=== PATIENT | male | born 1980 | race American Indian/Alaskan Native ===

== ENCOUNTER 2018-02-13 10:10 | Emergency (ER) | payer BC ==
[2018-02-13 10:20] VITALS: BP 137/90
[2018-02-13] MEDS ORDERED: PROVENTIL IH ONE (10:53)
[2018-02-13] MEDS ORDERED: DELTASONE PO ONE (10:54)
[2018-02-13] MEDS ORDERED: IBUPROFEN PO ONE (10:56)
--- NOTE | 2018-02-13 10:58 | Emergency Department Report ---
Minor Respiratory - HPI Chief Complaint: Adult Asthma Stated Complaint: SOB Time Seen by Provider: 02/13/18 10:42 Duration: 3 Days Pain Location: Chest Severity: mild Minor Respiratory: Yes Able to Tolerate Fluids, Yes Cough, No Rhinorrhea, No Sore Throat, No Ear Pain, No Sick Contacts, No Hemoptysis, No Chest Pain, No Shortness of Breath, No Fever Other History: Patient is a 37-year-old -[place] male who comes in today complaining of shortness of breath and wheezing for 2 days. Patient has a past medical history of asthma and he is out of his inhalers and has been for some time. Patient denies any other major medical problems. And is on no daily medications.no fever. ED Review of Systems ROS: Stated complaint: SOB Other details as noted in HPI Comment: All other systems reviewed and negative Constitutional: see HPI. denies: chills Eyes: denies: eye pain ENT: as per HPI. denies: throat pain Respiratory: no symptoms reported, see HPI, cough, shortness of breath, wheezing Cardiovascular: denies: chest pain, palpitations Endocrine: denies: flushing Gastrointestinal: denies: abdominal pain Genitourinary: denies: urgency Musculoskeletal: denies: back pain Skin: denies: lesions Neurological: denies: weakness Psychiatric: denies: depression Hematological/Lymphatic: denies: easy bleeding ED Past Medical Hx - Past Medical History Previous Medical History?: Yes Hx Asthma: Yes - Surgical History Past Surgical History?: Yes Additional Surgical History: bilat femur surgery - Social History Smoking Status: Current Every Day Smoker - Medications Home Medications: Home Medications Medication Instructions Recorded Confirmed Last Taken Type ALBUTEROL Inhaler (OR & NICU) 2 puff IH QID PRN #1 inhalation 02/13/18 Unknown Rx [ProAir HFA Inhaler] Amoxicillin 500 mg PO BID #20 capsule 02/13/18 Unknown Rx Cetirizine HCl [ZyrTEC] 10 mg PO DAILY #20 capsule 02/13/18 Unknown Rx Fluticasone [Flonase] 1 spray NS QDAY #1 bottle 02/13/18 Unknown Rx predniSONE [Deltasone] 20 mg PO DAILY #5 tablet 02/13/18 Unknown Rx Minor Respiratory Exam - Exam General: Vital signs noted. No distress. Alert and acting appropriately. HEENT: Yes Moist Mucous Membranes, No Pharyngeal Erythema, No Pharyngeal Exudates, No Rhinorrhea, No Conjuctival Injection, No Frontal Tenderness, No Maxillary Tenderness Ear: Neither TM Bulge, Neither TM Erythema, Neither EAC Pain, Neither EAC Discharge Neck: Yes Supple, No Adenopathy Lungs: Yes Good Air Exchange, Yes Wheezes (b), Yes Cough, No Ronchi, No Stridor, No Labored Respirations, No Retractions, No Use of Accessory Muscles, No Other Abnormal Lung Sounds Heart: Yes Regular (hr 90 on exam), No Murmur Abdomen: Yes Normal Bowel Sounds, No Tenderness, No Peritoneal Signs Skin: No Rash, No Edema Neurologic: Alert and oriented, no deficits. Musculoskeletal: Unremarkable. ED Course Vital Signs 02/13/18 10:17 Temperature 98.8 F Pulse Rate 115 H Respiratory 22 Rate Blood Pressure 137/90 O2 Sat by Pulse 97 Oximetry ED Medical Decision Making - Medical Decision Making non toxic ambulatory taking po no fever - Differential Diagnosis asthma w or wo ae Critical care attestation.: If time is entered above; I have spent that time in minutes in the direct care of this critically ill patient, excluding procedure time. ED Disposition Clinical Impression: Asthma with acute exacerbation, URTI (acute upper respiratory infection) Disposition: DC-01 TO HOME OR SELFCARE Is pt being admited?: No Does the pt Need Aspirin: No Condition: Stable Instructions: Asthma (ED) Additional Instructions: rest hydrate well meds as ordered today follow up pcp in 48 hours if not better referral below Referrals: ATIYA MARIE MD [Primary Care Provider] - 3-5 Days LUC JOSE MD [Staff Physician] - 3-5 Days Time of Disposition: 10:56
== END 2018-02-13 11:37 | disposition home or self-care (01) ==
LOC: ED 10:10
DX: J45.901 Unspecified asthma with (acute) exacerbation (principal); J06.9 Acute upper respiratory infection, unspecified; F17.200 Nicotine dependence, unspecified, uncomplicated
CPT/HCPCS: 94640; 99282; J7512

== ENCOUNTER 2020-10-29 14:29 | Emergency (ER) | payer BC ==
[2020-10-29] MEDS ORDERED: predniSONE 20 MG TAB PO ONE (14:55)
[2020-10-29] MEDS ORDERED: KETOROLAC 60 MG/2 ML INJ IM ONE (14:55)
--- NOTE | 2020-10-29 15:36 | Emergency Department Report ---
ED Back Pain/Injury HPI - General Chief Complaint: Extremity Problem,Nontraumatic Stated Complaint: LOSING FEELINGS IN BOTH LEGS Time Seen by Provider: 10/29/20 14:55 Source: patient Limitations: No Limitations - History of Present Illness Initial Comments: This is a 40-year-old male nontoxic, well nourished in appearance, no acute signs of distress presents to the ED with c/o of acute on chronic lower back pain with radiation to bilateral legs. Patient stated had a accident in the year 2006 and had bilateral surgical procedures to femur. Patient otherwise denies any other injuries or symptoms. Patient stated was just seen a provider in urgent care and was given medicartions which made his symptoms better and was diagnosed radiculopathy and has a orthopedic appointment this Monday in 4 days. Patient stated taht he went to work today and developed pains to lower back with radiation to bilateral legs. Patient states has history of sciatica nerve pain which is similar symptoms as today. Patient states that pain radiates through to his bilateral lower extremity. Patient denies any new injuries or trauma. Denies any bladder or bowel instability. Patient denies any urinary symptoms. Denies any fever, chills, nausea, vomiting, headache, stiff neck, chest pain or shortness of breath. Denies any allergies. MD Complaint: back pain -: days(s) Similar Symptoms Previously: Yes Place: work Radiation: left leg, right leg Severity: mild Severity scale (0 -10): 3 Quality: aching Consistency: intermittent Improves With: immobilization, sitting upright Worsens With: movement, walking Associated Symptoms: denies other symptoms. denies: confusion, weakness, chest pain, numbness, difficulty walking, cough, difficulty urinating, diaphoresis, incontinence, fever/chills, constipation, headaches, abdominal pain, malaise, nausea/vomiting, rash, seizure, shortness of breath, syncope - Related Data Previous Rx's Medication Instructions Recorded Last Taken Type Albuterol Mdi (or & Nicu Only) 2 puff IH QID PRN #1 inhalation 02/13/18 Unknown Rx [ProAir HFA Inhaler] Amoxicillin 500 mg PO BID #20 capsule 02/13/18 Unknown Rx Cetirizine HCl [ZyrTEC] 10 mg PO DAILY #20 capsule 02/13/18 Unknown Rx Fluticasone [Flonase] 1 spray NS QDAY #1 bottle 02/13/18 Unknown Rx predniSONE [Deltasone] 20 mg PO DAILY #5 tablet 02/13/18 Unknown Rx Allergies Allergy/AdvReac Type Severity Reaction Status Date / Time No Known Allergies Allergy Verified 11/05/15 17:51 ED Review of Systems ROS: Stated complaint: LOSING FEELINGS IN BOTH LEGS Other details as noted in HPI Comment: All other systems reviewed and negative Constitutional: denies: chills, fever Eyes: denies: eye pain, eye discharge, vision change ENT: denies: ear pain, throat pain Respiratory: denies: cough, shortness of breath, wheezing Cardiovascular: denies: chest pain, palpitations Endocrine: no symptoms reported Gastrointestinal: denies: abdominal pain, nausea, diarrhea Genitourinary: denies: urgency, dysuria Musculoskeletal: back pain. denies: joint swelling, arthralgia Skin: denies: rash, lesions Neurological: denies: headache, weakness, paresthesias Psychiatric: denies: anxiety, depression Hematological/Lymphatic: denies: easy bleeding, easy bruising ED Past Medical Hx - Past Medical History Previous Medical History?: Yes Hx Asthma: Yes - Surgical History Additional Surgical History: bilat femur surgery - Social History Smoking Status: Current Every Day Smoker - Medications Home Medications: Home Medications Medication Instructions Recorded Confirmed Last Taken Type Albuterol Mdi (or & Nicu Only) 2 puff IH QID PRN #1 inhalation 02/13/18 Unknown Rx [ProAir HFA Inhaler] Amoxicillin 500 mg PO BID #20 capsule 02/13/18 Unknown Rx Cetirizine HCl [ZyrTEC] 10 mg PO DAILY #20 capsule 02/13/18 Unknown Rx Fluticasone [Flonase] 1 spray NS QDAY #1 bottle 02/13/18 Unknown Rx predniSONE [Deltasone] 20 mg PO DAILY #5 tablet 02/13/18 Unknown Rx ED Physical Exam - General Limitations: No Limitations General appearance: alert, in no apparent distress - Head Head exam: Present: atraumatic, normocephalic - Eye Eye exam: Present: normal appearance - Neck Neck exam: Present: normal inspection, full ROM. Absent: lymphadenopathy - Respiratory Respiratory exam: Present: normal lung sounds bilaterally. Absent: respiratory distress, wheezes, rales, rhonchi, stridor, chest wall tenderness, accessory muscle use, decreased breath sounds, prolonged expiratory - Cardiovascular Cardiovascular Exam: Present: normal rhythm, normal heart sounds. Absent: irregular rhythm, systolic murmur, diastolic murmur, rubs, gallop - GI/Abdominal GI/Abdominal exam: Present: soft, normal bowel sounds. Absent: distended, tenderness, guarding, rebound, rigid, diminished bowel sounds - Extremities Exam Extremities exam: Present: normal inspection, full ROM, normal capillary refill. Absent: tenderness, pedal edema, joint swelling, calf tenderness - Back Exam Back exam: Present: normal inspection, full ROM, paraspinal tenderness (lumbar paraspinal). Absent: tenderness, CVA tenderness (R), CVA tenderness (L), muscle spasm, vertebral tenderness, rash noted - Neurological Exam Neurological exam: Present: alert, oriented X3, normal gait - Psychiatric Psychiatric exam: Present: normal affect, normal mood - Skin Skin exam: Present: warm, dry, intact, normal color. Absent: rash ED Course Vital Signs 10/29/20 10/29/20 14:35 15:56 Temperature 98.2 F Pulse Rate 100 H 74 Respiratory 18 16 Rate Blood Pressure 147/103 Blood Pressure 134/78 [Right] O2 Sat by Pulse 99 98 Oximetry - Reevaluation(s) Reevaluation #1: 10/29/20 15:37 Patient is speaking in full sentences with no signs of distress noted. ED Medical Decision Making - Medical Decision Making This is a 40-year-old male that presents with chronic back pain with radiculopathy. Patient is stable was examined by me. There is no midline spinal tenderness. There is no cauda equina syndrome during examination. No bladder or bowel instability. Patient received Toradol 60 mg IM and prednisone in the ED which stated that his symptoms has resolved and subsided. Patient stated still has medication that was prescribed from urgent care. Patient was referred to Follow-up with a orthopedic doctor that he has scheduled already for or if symptoms worsen and continue return to emergency room as soon as possible. At time of discharge, the patient does not seem toxic or ill in appearance. No acute signs of distress noted. Patient agrees to discharge treatment plan of care. No further questions noted by the patient. This chart is dictated with using [employer] Dictation Program Critical care attestation.: If time is entered above; I have spent that time in minutes in the direct care of this critically ill patient, excluding procedure time. ED Disposition Clinical Impression: Lumbar radiculopathy, chronic Chronic back pain Qualifiers: Back pain location: low back pain Back pain laterality: bilateral Sciatica presence: with sciatica Sciatica laterality: bilateral sciatica Qualified Code(s): M54.42 - Lumbago with sciatica, left side; M54.41 - Lumbago with sciatica, right side; G89.29 - Other chronic pain Disposition: HOME / SELF CARE / HOMELESS Is pt being admited?: No Does the pt Need Aspirin: No Condition: Stable Instructions: Chronic Back Pain, Lumbosacral Radiculopathy Additional Instructions: Follow-up with your orthopedic doctor that you currently have scheduled already or if symptoms worsen such as bladder or bowel stability, chest pain, short of breath, numbness or tingling sensation in extremities, headache, dizziness, visual changes, nausea vomiting, or abdominal pain, return back to emergency room as was possible. Continue taking medications as prescribed to you by your previous doctor. No physical activity that extremity until cleared by orthopedic doctor Referrals: MARIYA CARTAGENA MD [Staff Physician] - MAYO SOLOMON MD [Staff Physician] - PRIMARY CAREMD [Primary Care Provider] - Forms: Work/School Release Form(ED) Time of Disposition: 16:01
[2020-10-29 15:57] VITALS: BP 134/78
== END 2020-10-29 16:34 | disposition home or self-care (01) ==
LOC: ED 14:29
DX: M54.16 Radiculopathy, lumbar region (principal); M54.5 Low back pain; J45.909 Unspecified asthma, uncomplicated; Z98.890 Other specified postprocedural states; F17.200 Nicotine dependence, unspecified, uncomplicated
CPT/HCPCS: 96372; 99282; J1885; J7512

== ENCOUNTER 2020-11-04 13:25 | Outpatient (CLI) | payer OTHER, BC ==
--- NOTE | 2020-11-04 14:50 | XRay Report ---
BILATERAL FEMURS AP VIEWS INDICATION / CLINICAL INFORMATION: PAIN IN UNSPECIFIED THIGH COMPARISON: None available. FINDINGS: BONES and JOINT(S): No acute fracture or subluxation. Bilateral internal fixation of the femurs appea rs intact and in good position. There are old fractures of the proximal third of the left femoral sha ft and distal third of the right femoral shaft. No significant arthritis. SOFT TISSUES: No significant abnormality. ADDITIONAL FINDINGS: None. IMPRESSION: 1. No acute findings. 2. Additional findings as above. Signer Name: Brad Villar MD Signed: 11/04/2020 2:46 PM Workstation Name: [id number]
== END 2020-11-04 13:26 | disposition home or self-care (01) ==
LOC: XRAY 13:25
PROVIDERS: ATTEND Orthopaedic Surgery
DX: M79.651 Pain in right thigh (principal); M79.652 Pain in left thigh

== ENCOUNTER 2020-11-23 06:27 | Day surgery (SDC) | payer OTHER, BC ==
--- NOTE | 2020-11-20 10:06 | Anesthesia Consultation ---
Anesthesia Consult and Med Hx Date of service: 11/20/20 - Airway Anesthetic Teeth Evaluation: Good, Dentures (upper) ROM Head & Neck: Adequate Mental/Hyoid Distance: Adequate Mallampati Class: Class III Intubation Access Assessment: Possibly Difficult - Pulmonary Exam CTA: Yes - Cardiac Exam Cardiac Exam: RRR - Pre-Operative Health Status ASA Pre-Surgery Classification: ASA2 Proposed Anesthetic Plan: General - Pulmonary Hx Smoking: Yes (1/2PPD) Hx Asthma: Yes (no inhaler use in >1month; triggered by dust, allergies) Hx Respiratory Symptoms: No - Cardiovascular System Hx Hypertension: No Hx Heart Attack/AMI: No Hx Percutaneous Transluminal Coronary Angioplasty (PTCA): No Hx Cardia Arrhythmia: No - Central Nervous System CVA: No Hx Back Pain: Yes - Endocrine Hx Renal Disease: No Hx Liver Disease: No Hx Insulin Dependent Diabetes: No Hx Non-Insulin Dependent Diabetes: No Hx Thyroid Disease: No - Other Systems Hx Alcohol Use: Yes (6 beers per day) Hx Obesity: No - Additional Comments Anesthesia Medical History Comments: No hx anesthetic complications.
[2020-11-20 10:52] LABS: Hematocrit 41.4 % (35.5-45.6); Hemoglobin 14.3 gm/dl (11.8-15.2); Mean Corpuscular HGB Conc 35 % (32-34); Mean Corpuscular Volume 94 fl (84-94); Platelet Count 298 K/mm3 (140-440); Red Cell Distribution Width 13.6 % (13.2-15.2)
[~2020-11-23 06:27] MED LIST: ACETAMINOPHEN 500 MG TAB PO SCH; CELECOXIB 200 MG CAP PO NR; GABAPENTIN 300 MG CAP PO NR; LACTATED RINGERS 1,000 ML IV SCH; MIDAZOLAM 2 MG/2 ML INJ IV NR; ceFAZolin/STERILE WATER 2 GM/20 ML SYRINGE IV SCH; metroNIDAZOLE/NS 500 MG/100 ML 500 MG/100 ML BAG IV SCH
[2020-11-23] MEDS ORDERED: NEOMY 40 MG/POLYMYXIN B 200,000 UNITS/ML (GU) AMPULE IR ONE ×2 (07:31→09:46)
[2020-11-23] MEDS ORDERED: dexAMETHasone 20 MG/5 ML VIAL ONE (09:00)
[2020-11-23] MEDS ORDERED: ONDANSETRON 4 MG/2 ML INJ ONE (09:00)
[2020-11-23] MEDS ORDERED: LIDOCAINE MPF (2%) 20 MG/1 ML VIAL 5 ML ONE (09:00)
[2020-11-23] MEDS ORDERED: fentaNYL 100 MCG/2 ML INJ ONE ×3 (09:01→10:43)
[2020-11-23] MEDS ORDERED: propofoL 200 MG/20 ML VIAL IV ONE (09:01)
[2020-11-23] MEDS ORDERED: ePHEDrine SULFATE 50 MG/1 ML INJ ONE (09:18)
[2020-11-23] MEDS ORDERED: SODIUM CHLORIDE 0.9% IRR 1,500 ML BOTTLE IR ONE (09:46)
[2020-11-23] MEDS ORDERED: HYDROmorphone 1 MG/1 ML INJ ONE (09:54)
--- NOTE | 2020-11-23 10:51 | XRay Report ---
INTRAOPERATIVE FLUOROSCOPY INDICATION / CLINICAL INFORMATION: RIGHT KNEE PAIN.. TECHNIQUE: Intraoperative spot images were obtained during the procedure. FINDINGS: Intraoperative fluoroscopy images See operative/procedure note by performing physician for full details. Fluoroscopy Time: 0.7 minutes. Fluoroscopy Images: 2. Signer Name: Tj Martin MD Signed: 11/23/2020 10:47 AM Workstation Name: [id number]
[2020-11-23] MEDS ORDERED: HYDROmorphone 1 MG/1 ML INJ IV PRN (11:33)
--- NOTE | 2020-11-23 11:57 | Operative Report ---
Operative Report Operative Report: Preop diagnosis : Retained painful hardware , right distal femur Postop diagnosis: Retained painful hardware, right distal femur Procedure: Movable of 2 (most distal) locking screws, right distal femur Surgeon: Reji Philip MD Anesthesia: General with LMA Details of operative technique: The patient was prepared in the same-day holding area. He was then brought to the operating room where he underwent general anesthesia utilizing an LMA. He was placed in the supine position and the right distal thigh and knee were prepped and draped in the usual sterile fashion with ChloraPrep solution. A tourniquet was applied but was not utilized. A timeout was then called by the circulating nurse and once again the correct site was identified. This Patient had undergone a cephalocaudal intramedullary nail fixation for a distal femoral shaft fracture in the remote past. There were 2 small incisions in the distal thigh for the most distal of the locking screws. There was a total of 4 distal locking screws 2 in the metadiaphysis which were perfectly normal (and left alone) and 2 in the more distal locking holes at the epicondyle area of the distal femur. It was these 2 the most distal, which were prominent both medially and laterally over the epicondylar area. Preop radiographs show that the screws had migrated possibly a few millimeters which now caused them to impinge on the soft tissue in the epicondylar area of the knee where there is a very thin fibrofatty layer. Utilizing C arm images during the case, the most distal screw was addressed first and a small incision was made over the lateral epicondylar area in line with the head of the cannulated cancellous screw. This appeared to be the longer screw and also appeared to be a 5.5 mm diameter screw that was removed after localizing with C arm from the lateral approach. The proximal epicondylar screw had been placed from medial to lateral and so a slightly larger incision approximately 2 cm was made on the medial side of the epicondyle expanding the original incision by half. Stasis was secured with the Bovie. Fibrous tissue and bone remodeling from the protrusion of the head of the screw which created a fibro-osseous roof. Once localized utilizing C arm the screw was removed with a pair of large pliers. C arm fluoro images confirmed both distal screws that were located in the epicondylar area of the distal femur had been successfully removed. The wounds were then irrigated copiously with normal saline. Lateral wound required only skin closure utilizing 2-0 nylon interrupted sutures. The medial incision was more extensive with more soft tissue dissection and therefore the subcu layer was closed with 0 Vicryl suture and the skin was reapproximated with both a mattress and an interrupted suture utilizing 2-0 nylon. Sterile compressive dressings were placed over both incisions including Xeroform dressi ngs. These were secured with an ABD pad and an Dustin wrap. Patient was then awakened and taken to recovery room in excellent condition. Estimated blood loss: Less than 20 cc Drains: None Complications: None Tourniquet time: Not utilized
--- NOTE | 2020-11-23 16:43 | Post Anesthesia Evaluation ---
- Post Anesthesia Evaluation Patient Participated: Yes Airway Patent: Yes Stable Respiratory Function: Yes Nausea/Vomiting: No Temp > 96.8F: Yes Pain Manageable: Yes Adequeate Hydration: Yes Anesthesia Complications: No Block Receding Appropriately: Not Applicable Patient on Ventilator: No
[2020-11-23 17:55] VITALS: BP 150/94
--- NOTE | 2020-11-26 09:46 | Electrocardiograph Report ---
[facility] Test Date: 2020-11-20 Test Time: 09:36:13 Pat Name: LEN MACIAS Department: Room: Gender: M Lock Operator: ANTHONY : 1980 Requested By: JUAN A LEE Order Number: [id number] Reading MD: Ace Ashford Measurements Intervals [place] Rate: 86 P: 83 ME: 137 QRS: 76 QRSD: 93 T: 50 QT: 357 QTc: 428 Interpretive Statements Sinus rhythm Probable left atrial enlargement Otherwise, normal ECG No previous ECG available for comparison Electronically Signed On 11-26-2020 9:45:50 EDT by Ace Ashford
== END 2020-11-23 13:05 | disposition home or self-care (01) ==
LOC: OR 06:27
PROVIDERS: ATTEND Orthopaedic Surgery
DX: T84.84XA Pain due to internal orthopedic prosthetic devices, implants and grafts, initial encounter (principal); Z20.822 Contact with and (suspected) exposure to COVID-19; J45.909 Unspecified asthma, uncomplicated; F17.210 Nicotine dependence, cigarettes, uncomplicated; Z79.899 Other long term (current) drug therapy; Z98.890 Other specified postprocedural states; Y83.8 Other surgical procedures as the cause of abnormal reaction of the patient, or of later complication, without mention of misadventure at the time of the procedure
CPT/HCPCS: 20680; 36415; 73560; 85027; 93005; J0690; J1100; J1170; J2405; J2704; J3010; J7120; U0003; 81025

== ENCOUNTER 2021-08-31 10:38 | Emergency (ER) | payer BC, OTHER ==
[2021-08-31 11:13] VITALS: BP 169/107
--- NOTE | 2021-08-31 11:13 | Emergency Department Report ---
ED General Adult HPI - General Stated complaint: NUMBNESS IN BOTH FEET PUI?: No Time Seen by Provider: 08/31/21 11:10 Source: patient Mode of arrival: Ambulatory Limitations: No Limitations - History of Present Illness Initial comments: Patient is a 41-year-old male that comes to the emergency room with bilateral foot numbness. He was a patient of Dr. Tapia and had surgery in November for retained hardware in his right hip. See EMR. He states that since that time this numbness of his feet has increased. He denies incontinence. He is ambulatory to the ER. On no home medications. Does not have a primary care doctor. -: Gradual Consistency: constant Improves with: none Worsens with: none Associated Symptoms: denies other symptoms Treatments Prior to Arrival: none - Related Data Allergies Allergy/AdvReac Type Severity Reaction Status Date / Time No Known Allergies Allergy Verified 11/18/20 12:44 ED Review of Systems ROS: Stated complaint: NUMBNESS IN BOTH FEET Other details as noted in HPI Comment: All other systems reviewed and negative ED Past Medical Hx - Past Medical History Previous Medical History?: Yes Hx Headaches / Migraines: Yes (MIGRAINES) Hx Asthma: Yes Hx HIV: No - Surgical History Past Surgical History?: Yes Additional Surgical History: bilat femur surgery - Social History Smoking Status: Current Every Day Smoker Substance Use Type: Alcohol ED Physical Exam - General General appearance: alert, in no apparent distress - Head Head exam: Present: atraumatic, normocephalic - Eye Eye exam: Present: normal appearance - ENT ENT exam: Present: mucous membranes moist - Neck Neck exam: Present: normal inspection - Respiratory Respiratory exam: Present: normal lung sounds bilaterally. Absent: respiratory distress - Cardiovascular Cardiovascular Exam: Present: regular rate, normal rhythm. Absent: systolic murmur, diastolic murmur, rubs, gallop - GI/Abdominal GI/Abdominal exam: Present: soft, normal bowel sounds - Rectal Rectal exam: Present: deferred - Extremities Exam Extremities exam: Present: normal inspection - Back Exam Back exam: Present: normal inspection - Neurological Exam Neurological exam: Present: alert, oriented X3 - Psychiatric Psychiatric exam: Present: normal affect, normal mood - Skin Skin exam: Present: warm, dry, intact, normal color. Absent: rash ED Course Vital Signs 08/31/21 11:10 Temperature 98.5 F Pulse Rate 93 H Respiratory 18 Rate Blood Pressure 169/107 O2 Sat by Pulse 99 Oximetry Critical care attestation.: If time is entered above; I have spent that time in minutes in the direct care of this critically ill patient, excluding procedure time. ED Disposition Clinical Impression: Foot pain Disposition: 07 LEFT WITHOUT BEING SEEN Is pt being admited?: No Does the pt Need Aspirin: No Condition: Stable Referrals: PRIMARY CARE, [Primary Care Provider] - 3-5 Days
== END 2021-09-01 12:57 | disposition left against medical advice (07) ==
LOC: ED 10:38
DX: M79.673 Pain in unspecified foot (principal); F17.200 Nicotine dependence, unspecified, uncomplicated; F10.20 Alcohol dependence, uncomplicated; J45.909 Unspecified asthma, uncomplicated
CPT/HCPCS: 99281